=== PATIENT | male | born 1935 | race Caucasian/White ===

== ENCOUNTER 2016-05-11 13:09 | Inpatient (IN) | payer OTHER ==
[~2016-05-11] VITALS: Ht 162.6 cm; Wt 87.2 kg
[~2016-05-11 13:09] MED LIST: FLUT0.0529; ISOS60TA2 PO; LOSA1TAB38 PO; METO50TA17 PO; NITR0.4D6; OMEP40CA PO; SERT25TA PO; TAMS0.4C38 PO; THIA50TA3 PO; TIOTCAP INH; TRMCR130WC; WARF5TAB7 PO; [UNRECOGNIZED DRUG - CODE] PO
[2016-05-11] MEDS ORDERED: ASPI81TA28 PO (13:55)
[2016-05-11] MEDS ORDERED: FLOVENT PO (13:55)
[2016-05-11] MEDS ORDERED: PRVC40 PO (13:55)
[2016-05-11] MEDS ORDERED: ADVIN10050 PO (13:55)
[2016-05-11] MEDS ORDERED: DUTA0.5C PO (13:55)
[2016-05-11] MEDS ORDERED: APIX1TAB3 PO (13:55)
[2016-05-11] MEDS ORDERED: METO25TA56 PO (13:55)
[2016-05-11] MEDS ORDERED: AZITTAB PO (13:56)
[2016-05-11 14:05] LABS: BASO % 0.5 %; BASO ABS # 0.04 K/uL (0-0.2); COMPLETE YES; EOS % 2.8 %; IG% 0.2 %; LYMPH % 20.1 %; LYMPH ABS # 1.77 K/uL (1.2-3.4); MEAN CELL VOLUME 82.2 fL (80-100); MEAN CORPUSCULAR HEMOGLOBIN 26.2 pg (25-34); MEAN CORPUSCULAR HGB CONC 31.9 g/dl (32-36); NEUT % 63.4 %; PLATELET COUNT 224 K/uL (130-400); RED BLOOD COUNT 5.23 M/uL (4.7-6.1); WHITE BLOOD COUNT 8.79 K/uL (4.8-10.8)
--- NOTE | 2016-05-11 15:14 | DIAGNOSTIC IMAGING REPORT ---
CT OF THE HEAD WITHOUT CONTRAST CLINICAL HISTORY: Brief seizure-like activity. COMPARISON STUDY: Head CT April 19, 2015. CT DOSE: 687.98 mGy.cm TECHNIQUE: Helical axial images of the head were obtained without IV contrast. Automated exposure control was utilized for the study. FINDINGS: This study is mildly compromised by motion artifact. No acute intracranial hemorrhage, midline shift or mass effect is present. Ventricular system is stable. The basilar cisterns are patent. There are no extra-axial collections. Montero-white differentiation is maintained. There are no findings to suggest acute dural sinus thrombosis or acute territorial infarct. No calvarial fracture is present. The left mastoid air cells are clear. There is trace fluid within the right mastoid air cells. There is minimal mucosal thickening of the sinuses. IMPRESSION: No acute intracranial findings. Electronically signed by: Ced Kang M.D. 05/11/2016 3:12 PM Dictated Date/Time: 05/11/2016 3:10 PM
[2016-05-11 15:15] LABS: URINE APPEARANCE CLEAR (CLEAR); URINE COLOR DK YELLOW; URINE EPITHELIAL CELL AUTO 20-30 /lpf (0-5); URINE NITRITE POS (NEG); URINE SPECIFIC GRAVITY 1.024 (1.000-1.030); UROBILINOGEN NEG (NEG); ZZUR CULT IF INDIC CLEAN CATCH NO
[2016-05-11 15:16] LABS: MANUAL MICROSCOPIC REQUIRED? NO; REVIEW REQ? YES
--- NOTE | 2016-05-11 15:17 | DIAGNOSTIC IMAGING REPORT ---
CHEST 2 VIEWS ROUTINE HISTORY: cough COMPARISON: Chest 04/19/2015. FINDINGS: Left-sided dual-chamber pacemaker. The heart is stable in size. Volume loss within the right hemithorax persists. Patchy and linear densities within the right lower lung zone are not significantly changed. This favors postoperative change. There are stable blunting of the right lateral costophrenic sulcus. A 5 mm nodular density within the left lateral lower lobe on the frontal view is demonstrated to be a nipple shadow on the lateral view. The left lung is clear. No new focal lung consolidations. No evidence for pulmonary edema. IMPRESSION: No significant change compared to the prior study. No acute process. Stable presumed postoperative changes within the right hemithorax. Electronically signed by: James Marrufo M.D. 05/11/2016 3:16 PM Dictated Date/Time: 05/11/2016 3:13 PM
[2016-05-11 15:18] LABS: URINE BILIRUBIN NEG (NEG)
[2016-05-11] MEDS ORDERED: CEFTRIAXONE SOD INJ 1 GM ADDVIAL IV STA (15:24)
[2016-05-11] MEDS ORDERED: SODIUM CHLORIDE 0.9% 1000ML 1,000 ML IV STA (15:24)
[2016-05-11 15:36] LABS: URINE MUCUS PRESENT (NONE PRSENT)
--- NOTE | 2016-05-11 15:42 | EMERGENCY ROOM VISIT NOTE ---
History Report prepared by Arun: Kamala Ivy Under the Supervision of: Dr. Leeanna Bryan M.D. First contact with patient: 13:23 Chief Complaint: COUGH Stated Complaint: COUGHING Nursing Triage Summary: cough and dizziness and syncope started on . Evaluated by PCP on Thursday, placed on Zpack, no relief. History of Present Illness The patient is a 80 year old male who presents to the Emergency Room with complaints of a worsening cough for the past 3 days. He also notes dizziness, weakness, headache, and neck pain. Per , the patient has had 2 episodes of shaking with clenched fists while coughing that last for 1-2 minutes. The patient does not have any memory of these episodes. states that she was afraid to go to sleep and leave him unattended last night due to these episodes. She reports that he acted similarly in the past when he was in atrial fibrillation. The patient saw his PCP 2 days ago for his cough and was placed on a Z-pac. He has not had any relief of his symptoms. Source of History: patient, spouse/significant other Onset: 3 days ago Position: chest (respiratory) Quality: other (cough) Timing: worsening Modifying Factors (Relieving): other (none) Associated Symptoms: + headache, + neck pain, + weakness Review of Systems See HPI for pertinent positives & negatives. A total of 10 systems reviewed and were otherwise negative. Past Medical & Surgical Medical Problems: (1) Abnormal EKG (2) Atrial fibrillation (3) Hypertension (4) Pneumonia (5) Syncope (6) Upper respiratory infection Family History Non-pertinent due to advanced age. Social History Smoking Status: Never Smoker Marital Status: Housing Status: lives with significant other Occupation Status: retired Current/Historical Medications Scheduled Apixaban (Eliquis), 5 MG PO BID Azithromycin (Zithromax Z-Wander), 1 PKT PO UD Dutasteride (Avodart), 0.5 MG PO DAILY Fluticasone Prop/Salmeterol (Advair Diskus 100-50 Mcg/Dose), 1 PUFF PO DAILY Isosorbide Mononitrate (Imdur Ext Rel), 60 MG PO QAM Losartan Potassium (Cozaar), 100 MG PO BID Metoprolol Tartrate (Lopressor) (Lopressor), 25 MG PO BID Omeprazole (Prilosec), 40 MG PO DAILY Pravastatin Sod (Pravastatin Sodium), 80 MG PO QPM Sertraline (Zoloft), 25 MG PO QPM Tamsulosin Hcl (Flomax), 0.4 MG PO DAILY Thiamine Hcl (Vitamin B-1), 50 MG PO DAILY Tiotropium Moodus (Spiriva Handihaler), 1 CAP INH DAILY Triamcinolone Acet (Aristocort 0.1%), UD [Flovent], 2 PUFF PO BID Scheduled PRN Fluticasone Propionate (Nasal) (Flonase), 2 SPRAYS NA DAILY PRN for Nasal Congestion Nitroglycerin (Nitroglycerin), for Chest Pain Allergies Coded Allergies: Atorvastatin (Verified Adverse Reaction, Intermediate, N/V, 05/11/16) Benazepril (Verified Adverse Reaction, Intermediate, COUGH, 05/11/16) Physical Exam Vital Signs Date Time Temp Pulse Resp B/P Pulse Ox O2 Delivery O2 Flow Rate FiO2 05/11/16 17:26 64 20 135/68 97 05/11/16 17:00 68 20 128/68 96 Room Air 05/11/16 16:27 67 20 141/81 96 Room Air 05/11/16 15:23 64 20 113/69 96 Room Air 05/11/16 14:02 36.6 75 20 116/60 96 Room Air 05/11/16 13:57 75 05/11/16 13:54 64 20 109/62 67 95/59 79 116/60 05/11/16 13:20 36.6 80 20 119/77 96 Room Air Physical Exam CONSTITUTIONAL: No acute distress. HEENT: No icterus, moist mucous membranes NECK: No meningismus, trachea is midline. CARDIOVASCULAR: Regular rate, normal perfusion RESPIRATORY: Unlabored breathing. Coarse breath sounds bilaterally. GASTROINTESTINAL: Non-tender GENITOURINARY: No flank tenderness MUSCULOSKELETAL: Full range of motion, no pedal edema. NEUROLOGIC: No acute gross focal deficits. PSYCHIATRIC: Normal affect SKIN: Normal for ethnicity. Medical Decision & Procedures ER Provider Diagnostic Interpretation: Radiology results as stated below per my review and radiologist interpretation. CHEST 2 VIEWS ROUTINE HISTORY: cough COMPARISON: Chest 04/19/2015. FINDINGS: Left-sided dual-chamber pacemaker. The heart is stable in size. Volume loss within the right hemithorax persists. Patchy and linear densities within the right lower lung zone are not significantly changed. This favors postoperative change. There are stable blunting of the right lateral costophrenic sulcus. A 5 mm nodular density within the left lateral lower lobe on the frontal view is demonstrated to be a nipple shadow on the lateral view. The left lung is clear. No new focal lung consolidations. No evidence for pulmonary edema. IMPRESSION: No significant change compared to the prior study. No acute process. Stable presumed postoperative changes within the right hemithorax. Electronically signed by: James Marrufo M.D. 05/11/2016 3:16 PM Dictated Date/Time: 05/11/2016 3:[address] OF THE HEAD WITHOUT CONTRAST CLINICAL HISTORY: Brief seizure-like activity. COMPARISON STUDY: Head CT April 19, 2015. CT DOSE: 687.98 mGy.cm TECHNIQUE: Helical axial images of the head were obtained without IV contrast. Automated exposure control was utilized for the study. FINDINGS: This study is mildly compromised by motion artifact. No acute intracranial hemorrhage, midline shift or mass effect is present. Ventricular system is stable. The basilar cisterns are patent. There are no extra-axial collections. Montero-white differentiation is maintained. There are no findings to suggest acute dural sinus thrombosis or acute territorial infarct. No calvarial fracture is present. The left mastoid air cells are clear. There is trace fluid within the right mastoid air cells. There is minimal mucosal thickening of the sinuses. IMPRESSION: No acute intracranial findings. Electronically signed by: Ced Kang M.D. 05/11/2016 3:12 PM Dictated Date/Time: 05/11/2016 3:10 PM Laboratory Results 05/11/16 13:40 Red Blood Count 5.23, Mean Corpuscular Volume 82.2, Mean Corpuscular Hemoglobin 26.2, Mean Corpuscular Hemoglobin Concent 31.9, Mean Platelet Volume 10.0, Neutrophils (%) (Auto) 63.4, Lymphocytes (%) (Auto) 20.1, Monocytes (%) (Auto) 13.0, Eosinophils (%) (Auto) 2.8, Basophils (%) (Auto) 0.5, Neutrophils # (Auto ) 5.57, Lymphocytes # (Auto) 1.77, Monocytes # (Auto) 1.14, Eosinophils # (Auto ) 0.25, Basophils # (Auto) 0.04 05/11/16 16:15 Test 05/11/16 13:40 05/11/16 13:49 05/11/16 14:00 05/11/16 14:55 White Blood Count 8.79 K/uL (4.8-10.8) Red Blood Count 5.23 M/uL (4.7-6.1) Hemoglobin 13.7 g/dL (14.0-18.0) Hematocrit 43.0 % (42-52) Mean Corpuscular Volume 82.2 fL (80-100) Mean Corpuscular Hemoglobin 26.2 pg (25-34) Mean Corpuscular Hemoglobin Concent 31.9 g/dl (32-36) Platelet Count 224 K/uL (130-400) Mean Platelet Volume 10.0 fL (7.4-10.4) Neutrophils (%) (Auto) 63.4 % Lymphocytes (%) (Auto) 20.1 % Monocytes (%) (Auto) 13.0 % Eosinophils (%) (Auto) 2.8 % Basophils (%) (Auto) 0.5 % Neutrophils # (Auto) 5.57 K/uL (1.4-6.5) Lymphocytes # (Auto) 1.77 K/uL (1.2-3.4) Monocytes # (Auto) 1.14 K/uL (0.11-0.59) Eosinophils # (Auto) 0.25 K/uL (0-0.5) Basophils # (Auto) 0.04 K/uL (0-0.2) RDW Standard Deviation 41.7 fL (36.4-46.3) RDW Coefficient of Variation 13.9 % (11.5-14.5) Immature Granulocyte % (Auto) 0.2 % Immature Granulocyte # (Auto) 0.02 K/uL (0.00-0.02) Magnesium Level 2.4 mg/dl (1.8-2.4) Total Creatine Kinase 77 U/L (39-308) Creatine Kinase MB 1.1 ng/ml (0.5-3.6) Creatine Kinase MB Ratio 1.4 (0-3.0) Troponin I < 0.015 ng/ml (0-0.045) Bedside Lactic Acid Venous 1.51 mmol/L (0.90-1.70) Influenza Type A Antigen Neg for Influ A (NEG) Influenza Type B Antigen Neg for Influ B (NEG) Urine Color DK YELLOW Urine Appearance CLEAR (CLEAR) Urine pH 5.0 (4.5-7.5) Urine Specific [place] 1.024 (1.000-1.030) Urine Protein NEG (NEG) Urine Glucose (UA) NEG (NEG) Urine Ketones TRACE (NEG) Urine Occult Blood NEG (NEG) Urine Nitrite POS (NEG) Urine Bilirubin NEG (NEG) Urine Urobilinogen NEG (NEG) Urine Leukocyte Esterase TRACE (NEG) Urine WBC (Auto) 1-5 /hpf (0-5) Urine RBC (Auto) 0-4 /hpf (0-4) Urine Hyaline Casts (Auto) >30 /lpf (0-5) Urine Epithelial Cells (Auto) 20-30 /lpf (0-5) Urine Bacteria (Auto) NEG (NEG) Urine Pathogenic Casts /lpf (0) Urine Mucus PRESENT (NONE PRSENT) Test 05/11/16 16:15 Anion Gap 10.0 mmol/L (3-11) Est Creatinine Clear Calc Drug Dose 32.8 ml/min Estimated GFR () 40.3 Estimated GFR (Non- 34.8 BUN/Creatinine Ratio 17.1 (10-20) Calcium Level 8.3 mg/dl (8.5-10.1) Total Bilirubin 0.6 mg/dl (0.2-1) Aspartate Amino Transf (AST/SGOT) 16 U/L (15-37) Alanine Aminotransferase (ALT/SGPT) 12 U/L (12-78) Alkaline Phosphatase 61 U/L (45-117) Total Protein 6.0 gm/dl (6.4-8.2) Albumin 3.1 gm/dl (3.4-5.0) Globulin 2.9 gm/dl (2.5-4.0) Albumin/Globulin Ratio 1.1 (0.9-2) Labs reviewed by ED physician. Medications Administered Medications (Trade) Dose Ordered Sig/Ryanne Route Start Time Stop Time Status Last Admin Dose Admin Sodium Chloride (Nss 1000ml) 1,000 ml @ 0 mls/hr Q0M STAT IV 05/11/16 15:24 05/11/16 15:25 DC 05/11/16 15:24 0 MLS/HR Ceftriaxone Sodium (Rocephin Inj) 1 gm NOW STAT IV 05/11/16 15:24 05/11/16 15:25 DC 05/11/16 16:29 1 GM ED Course 1324: Past medical records reviewed. The patient was evaluated in room C12B. A complete history and physical examination was performed. 1524: Rocephin 1 gm IV, NSS 1000 ml wide open IV 1532: I reassessed the patient at this time. He is feeling better and resting comfortably. I discussed the results and treatment plan with the patient. I answered all pertaining questions that he had. He expressed understanding and verbalized agreement. 1543: I spoke with Dr. Gomez. We discussed the patients results and treatment plan. The patient will be evaluated by the [facility] for further management. Medical Decision Differential diagnoses includes viral syndrome, pneumonia, seizure, electrolyte abnormality. 80-year-old brought to the emergency room by his for evaluation of cough with 2 episodes of seizure-like activity and loss of consciousness earlier today. He is presently alert oriented cooperative without complaints. states he had a coughing fit followed by perhaps 30 seconds to a minute of generalized shaking activity with no recollection of this activity. He he rapidly returned to normal mentation, however. Review of systems notable for mild diffuse headache without focal neurologic complaints. No prior history of seizure disorder. Preliminary UA notable for nitrites and patient mildly hypotensive: IVFs and Rocephin IV ordered and hospitalization arranged. Consults Time Called: 153 Consulting Physician: Dr. Gomez Returned Call: [phone] Gomez. We discussed the patients results and treatment plan. The patient will be evaluated by the [facility] for further management. Impression Primary Impression: UTI (urinary tract infection) Additional Impressions: Altered mental status, Seizure-like activity Scribe Attestation The scribe's documentation has been prepared under my direction and personally reviewed by me in its entirety. I confirm that the note above accurately reflects all work, treatment, procedures, and medical decision making performed by me. Departure Information Dispostion Being Evaluated By Hospitalist Demetrio Braxton M.D. (PCP) Patient Instructions A Signature Page, My [facility]
[2016-05-11 16:16] LABS: CKMB/CK RATIO 1.4 (0-3.0)
[2016-05-11] MEDS ORDERED: NSS + 20MEQ KCL 1000ML 1,000 ML IV SCH (16:29)
[2016-05-11] MEDS ORDERED: ZOLPIDEM TARTRATE 5 MG TAB PO PRN (16:30)
[2016-05-11] MEDS ORDERED: FLUTICASONE PROPIONATE NA SPR 16 GM BTL PRN (16:30)
[2016-05-11] MEDS ORDERED: ACETAMINOPHEN 325 MG TAB PO PRN (16:30)
[2016-05-11] MEDS ORDERED: NITROGLYCERIN 0.4 MG SL PER TAB CHARGE SL PRN (16:30)
[2016-05-11 16:44] LABS: BUN/CREATININE RATIO 17.1 (10-20); CALCIUM 8.3 mg/dl (8.5-10.1); CREATININE 1.8 mg/dl (0.60-1.40); POTASSIUM 4.3 mmol/L (3.5-5.1)
[2016-05-11 16:49] LABS: ALB/GLOB RATIO 1.1 (0.9-2)
[2016-05-11 17:52] VITALS: BP 169/93; PULSE 74; TEMP 36.5; O2SAT 98; Ht 162.6 cm; Wt 87.2 kg
[2016-05-11] MEDS: SODIUM CHLORIDE 0.9% 1000ML 1,000 ML IV SCH (19:41)
--- NOTE | 2016-05-11 19:57 | History and Physical ---
History & Physical Date & Time of Service: May 11, 2016 at 19:44 Chief Complaint: Abnormal Ekg, Upper Respiratory Infection Primary Care Physician: Demetrio Strickland M.D. History of Present Illness Source: patient The patient is [id number] male presents emergency department with worsening cough with past 3 days his reports that when he coughs he tenses himself upper extremities so severely that he almost passes out over the interval 1-2 minutes. He's also had dizziness, weakness, headache and neck pain. He has had similar symptoms in the past when he was diagnosed with atrial fibrillation. 2 days ago he saw his PCP, who put him on a Z-Wander, without any relief of symptoms at this time. Past Medical/Surgical History Medical Problems: (1) Atrial fibrillation Status: Chronic (2) Hypertension Status: Chronic (3) Pneumonia Status: Resolved (4) Syncope Status: Resolved Social History Smoking Status: Former Smoker Smokeless Tobacco Use: No Alcohol Use: none Drug Use: none Marital Status: Housing status: lives with family Occupational Status: retired Multi-Drug Resistant Organisms History of MDRO: No Allergies Coded Allergies: Atorvastatin (Verified Adverse Reaction, Intermediate, N/V, 05/11/16) Benazepril (Verified Adverse Reaction, Intermediate, COUGH, 05/11/16) Home Medications Scheduled Apixaban (Eliquis), 5 MG PO BID Azithromycin (Zithromax Z-Wander), 1 PKT PO UD Dutasteride (Avodart), 0.5 MG PO DAILY Fluticasone Prop/Salmeterol (Advair Diskus 100-50 Mcg/Dose), 1 PUFF PO DAILY Isosorbide Mononitrate (Imdur Ext Rel), 60 MG PO QAM Losartan Potassium (Cozaar), 100 MG PO BID Metoprolol Tartrate (Lopressor) (Lopressor), 25 MG PO BID Omeprazole (Prilosec), 40 MG PO DAILY Pravastatin Sod (Pravastatin Sodium), 80 MG PO QPM Sertraline (Zoloft), 25 MG PO QPM Tamsulosin Hcl (Flomax), 0.4 MG PO DAILY Thiamine Hcl (Vitamin B-1), 50 MG PO DAILY Tiotropium [place] (Spiriva Handihaler), 1 CAP INH DAILY Triamcinolone Acet (Aristocort 0.1%), UD [Flovent], 2 PUFF PO BID Scheduled PRN Fluticasone Propionate (Nasal) (Flonase), 2 SPRAYS NA DAILY PRN for Nasal Congestion Nitroglycerin (Nitroglycerin), for Chest Pain Review of Systems The patient denies chest pain, palpitations, lower extremity swelling, vision change, hearing change, sore throat, fevers, chills, sweats, weight change, nausea, vomiting, abdominal pain, pelvic pain, blood in urine or stool, dysuria , urinary frequency or urgency, headache, memory loss, rash, abnormal bruising or bleeding, imbalance, focal weakness, numbness or tingling in arms or legs, arthralgias or myalgias, back or neck pain, night sweats, or allergy symptoms. The review of systems is otherwise negative other than for that already noted above, and at least 10 systems have been reviewed. Physical Exam Vital Signs Date Time Temp Pulse Resp B/P Pulse Ox O2 Delivery O2 Flow Rate FiO2 05/11/16 17:52 36.5 74 20 169/93 98 Room Air 05/11/16 17:26 64 20 135/68 97 05/11/16 17:00 68 20 128/68 96 Room Air 05/11/16 16:27 67 20 141/81 96 Room Air 05/11/16 15:23 64 20 113/69 96 Room Air 05/11/16 14:02 36.6 75 20 116/60 96 Room Air 05/11/16 13:57 75 05/11/16 13:54 64 20 109/62 67 95/59 79 116/60 05/11/16 13:20 36.6 80 20 119/77 96 Room Air The patient is awake, well-developed and adequately nourished, alert and oriented 3, normocephalic and atraumatic, lying in bed and in no acute distress. HEENT--PERRL, EOMI, mucous membranes moist, and oropharynx normal. Neck--supple, no JVD or bruits, thyroid normal, trachea midline, no adenopathy. Heart--normal S1 and S2, no extra beats, no murmurs, rubs or gallops. Lungs--clear bilaterally with good air movement, no respiratory distress, no accessory muscle use. Abdomen--normal bowel sounds and soft, nontender and nondistended, no hernias or masses, no organomegaly. Extremities--no cyanosis, clubbing or edema. There are good distal pulses b/l. Dermatologic--normal skin turgor, normal color, warm and dry, no abnormal lymph nodes, no rash. Neurologic--cranial nerves II through XII grossly intact. Psychiatric--normal affect. Diagnostics Laboratory Results Results Past 24 Hours Test 05/11/16 13:40 05/11/16 13:49 05/11/16 14:00 05/11/16 14:55 Range/Units White Blood Count 8.79 4.8-10.8 K/uL Red Blood Count 5.23 4.7-6.1 M/uL Hemoglobin 13.7 14.0-18.0 g/dL Hematocrit 43.0 42-52 % Mean Corpuscular Volume 82.2 80-100 fL Mean Corpuscular Hemoglobin 26.2 25-34 pg Mean Corpuscular Hemoglobin Concent 31.9 32-36 g/dl Platelet Count 224 130-400 K/uL Mean Platelet Volume 10.0 7.4-10.4 fL Neutrophils (%) (Auto) 63.4 % Lymphocytes (%) (Auto) 20.1 % Monocytes (%) (Auto) 13.0 % Eosinophils (%) (Auto) 2.8 % Basophils (%) (Auto) 0.5 % Neutrophils # (Auto) 5.57 1.4-6.5 K/uL Lymphocytes # (Auto) 1.77 1.2-3.4 K/uL Monocytes # (Auto) 1.14 0.11-0.59 K/uL Eosinophils # (Auto) 0.25 0-0.5 K/uL Basophils # (Auto) 0.04 0-0.2 K/uL RDW Standard Deviation 41.7 36.4-46.3 fL RDW Coefficient of Variation 13.9 11.5-14.5 % Immature Granulocyte % (Auto) 0.2 % Immature Granulocyte # (Auto) 0.02 0.00-0.02 K/uL Magnesium Level 2.4 1.8-2.4 mg/dl Total Creatine Kinase 77 39-308 U/L Creatine Kinase MB 1.1 0.5-3.6 ng/ml Creatine Kinase MB Ratio 1.4 0-3.0 Troponin I < 0.015 0-0.045 ng/ml Bedside Lactic Acid Venous 1.51 0.90-1.70 mmol/L Influenza Type A Antigen Neg for Influ A NEG Influenza Type B Antigen Neg for Influ B NEG Urine Color DK YELLOW Urine Appearance CLEAR CLEAR Urine pH 5.0 4.5-7.5 Urine Specific [place] 1.024 1.000-1.030 Urine Protein NEG NEG Urine Glucose (UA) NEG NEG Urine Ketones TRACE NEG Urine Occult Blood NEG NEG Urine Nitrite POS NEG Urine Bilirubin NEG NEG Urine Urobilinogen NEG NEG Urine Leukocyte Esterase TRACE NEG Urine WBC (Auto) 1-5 0-5 /hpf Urine RBC (Auto) 0-4 0-4 /hpf Urine Hyaline Casts (Auto) >30 0-5 /lpf Urine Epithelial Cells (Auto) 20-30 0-5 /lpf Urine Bacteria (Auto) NEG NEG Urine Pathogenic Casts 0 /lpf Urine Mucus PRESENT NONE PRSENT Test 05/11/16 16:15 Range/Units Sodium Level 141 136-145 mmol/L Potassium Level 4.3 3.5-5.1 mmol/L Chloride Level 105 98-107 mmol/L Carbon Dioxide Level 26 21-32 mmol/L Anion Gap 10.0 3-11 mmol/L Blood Urea Nitrogen 31 7-18 mg/dl Creatinine 1.80 0.60-1.40 mg/dl Est Creatinine Clear Calc Drug Dose 32.8 ml/min Estimated GFR () 40.3 Estimated GFR (Non- 34.8 BUN/Creatinine Ratio 17.1 10-20 Random Glucose 103 70-99 mg/dl Calcium Level 8.3 8.5-10.1 mg/dl Total Bilirubin 0.6 0.2-1 mg/dl Aspartate Amino Transf (AST/SGOT) 16 15-37 U/L Alanine Aminotransferase (ALT/SGPT) 12 12-78 U/L Alkaline Phosphatase 61 45-117 U/L Total Protein 6.0 6.4-8.2 gm/dl Albumin 3.1 3.4-5.0 gm/dl Globulin 2.9 2.5-4.0 gm/dl Albumin/Globulin Ratio 1.1 0.9-2 Microbiology Results 05/11/16 Blood Culture, Received Pending 05/11/16 Blood Culture, Received Pending Diagnostic Radiology Patient Name: BRANDON KUMARI Unit Number: [id number] Dictated: 05/11/161512 Transcribed: 05/11/161512 PA Printed Date/Time: [~ rep prt dt]/[~ rep prt tm] [~ rep ct labl] - [~ rep ct ivnm] [facility] [place] [place] [address] Dictated: 05/11/161512 Transcribed: 05/11/161512 PA Printed Date/Time: [~ rep prt dt]/[~ rep prt tm] [~ rep ct labl] - [~ rep ct ivnm] CHEST 2 VIEWS ROUTINE HISTORY: cough COMPARISON: Chest 04/19/2015. FINDINGS: Left-sided dual-chamber pacemaker. The heart is stable in size. Volume loss within the right hemithorax persists. Patchy and linear densities within the right lower lung zone are not significantly changed. This favors postoperative change. There are stable blunting of the right lateral costophrenic sulcus. A 5 mm nodular density within the left lateral lower lobe on the frontal view is demonstrated to be a nipple shadow on the lateral view. The left lung is clear. No new focal lung consolidations. No evidence for pulmonary edema. IMPRESSION: No significant change compared to the prior study. No acute process. Stable presumed postoperative changes within the right hemithorax. Electronically signed by: James Marrufo M.D. 05/11/2016 3:16 PM Dictated Date/Time: 05/11/2016 3:13 PM The status of this report is Signed. Draft = Not yet reviewed or approved by Radiologist. Signed = Reviewed and approved by Radiologist. <AttendingPhy></AttendingPhy> <FamilyPhy>Jorge Luis Clement MD</FamilyPhy > <PrimaryPhy>Demetrio Strickland M.D.</PrimaryPhy> <UnitNumber>[id number]</UnitNumber > <VisitNumber>[id number]</VisitNumber> <PatientName>BRANDON KUMARI</ PatientName> <DateOfBirth>1935</DateOfBirth> <Location>[facility]C</Location> < ServiceDate>05/11/16</ServiceDate> <MNE>ESINDI</MNE> <OrderingPhy>Fanny Bryan MD</OrderingPhy> <OrderingPhyMNE>f rep ord dr hernandez</OrderingPhyMNE> < DictatingPhyMNE>f rep dict dr hernandez</DictatingPhyMNE> <CCListMNE>f rep ct mne</ CCListMNE> <AdmittingPhyMNE>f pt admit dr hernandez</AdmittingPhyMNE> <AttendingPhyMNE >f pt attend dr hernandez</AttendingPhyMNE> <ConsultingPhyMNE>f pt consult dr hernandez</ConsultingPhyMNE> <FamilyPhyMNE>f pt fam dr hernandez</FamilyPhyMNE> <OtherPhyMNE>f pt other dr hernandez</OtherPhyMNE> < PrimaryPhyMNE>f pt prim care dr hernandez</PrimaryPhyMNE> <ReferringPhyMNE>f pt referring dr hernandez</ReferringPhyMNE> Patient Name: BRANDON KUMARI Unit Number: [id number] Dictated: 05/11/161509 Transcribed: 05/11/161509 Printed Date/Time: [~ rep prt dt]/[~ rep prt tm] [~ rep ct labl] - [~ rep ct ivnm] [facility] [place] [place] [address] Dictated: 05/11/161509 Transcribed: 05/11/161509 Printed Date/Time: [~ rep prt dt]/[~ rep prt tm] [~ rep ct labl] - [~ rep ct ivnm] CT OF THE HEAD WITHOUT CONTRAST CLINICAL HISTORY: Brief seizure-like activity. COMPARISON STUDY: Head CT April 19, 2015. CT DOSE: 687.98 mGy.cm TECHNIQUE: Helical axial images of the head were obtained without IV contrast. Automated exposure control was utilized for the study. FINDINGS: This study is mildly compromised by motion artifact. No acute intracranial hemorrhage, midline shift or mass effect is present. Ventricular system is stable. The basilar cisterns are patent. There are no extra-axial collections. Montero-white differentiation is maintained. There are no findings to suggest acute dural sinus thrombosis or acute territorial infarct. No calvarial fracture is present. The left mastoid air cells are clear. There is trace fluid within the right mastoid air cells. There is minimal mucosal thickening of the sinuses. IMPRESSION: No acute intracranial findings. Electronically signed by: Ced Kang M.D. 05/11/2016 3:12 PM Dictated Date/Time: 05/11/2016 3:10 PM The status of this report is Signed. Draft = Not yet reviewed or approved by Radiologist. Signed = Reviewed and approved by Radiologist. <AttendingPhy></AttendingPhy> <FamilyPhy>Jorge Luis Clement MD</FamilyPhy > <PrimaryPhy>Demetrio Strickland M.D.</PrimaryPhy> <UnitNumber>[id number]</UnitNumber > <VisitNumber>[id number]</VisitNumber> <PatientName>QUOCBRANDON</ PatientName> <DateOfBirth>1935</DateOfBirth> <Location>C[facility]</Location> < ServiceDate>05/11/16</ServiceDate> <MNE>ESINDI</MNE> <OrderingPhy>Fanny Bryan MD</OrderingPhy> <OrderingPhyMNE>f rep ord dr hernandez</OrderingPhyMNE> < DictatingPhyMNE>f rep dict dr hernandez</DictatingPhyMNE> <CCListMNE>f rep ct david</ CCListMNE> <AdmittingPhyMNE>f pt admit dr hernandez</AdmittingPhyMNE> <AttendingPhyMNE >f pt attend dr hernandez</AttendingPhyMNE> <ConsultingPhyMNE>f pt consult dr hernandez</ConsultingPhyMNE> <FamilyPhyMNE>f pt fam dr hernandez</FamilyPhyMNE> <OtherPhyMNE>f pt other dr hernandez</OtherPhyMNE> < PrimaryPhyMNE>f pt prim care dr hernandez</PrimaryPhyMNE> <ReferringPhyMNE>f pt referring dr hernandez</ReferringPhyMNE> EKG EKG shows normal sinus rhythm at 66, with nonspecific ST-T changes inferiorly and laterally in limb and chest leads. Impression Assessment and Plan Abnormal EKG with ST-T changes in lateral and inferior leads with normal cardiac enzymes upon admission/atrial fibrillation/CAD--the patient will be admitted to the telemetry unit, for serial cardiac enzymes, cardiac rhythm monitoring, and a 2-D echocardiogram with Dopplers. These changes are likely secondary to the stress of his associated infection. Continue Eliquis 5 mg by mouth twice a day, Imdur extended release 60 mg by mouth every morning, change Cozaar from 100 mg by mouth twice a day to every morning, continue metoprolol tartrate 25 mg by mouth twice a day. Upper respiratory infection with sinusitis--start ceftriaxone 1 g IV daily and guaifenesin extended release 600 mg by mouth twice a day. Continue Advair Diskus 100/50 one inhalation daily and Spiriva one inhalation every morning. BPH--continue Avodart 0.5 mg by mouth every morning and tamsulosin 0.4 mg by mouth at bedtime. Hypercholesterolemia-- continue pravastatin 80 mg by mouth every afternoon. GERD--change omeprazole 20 mg by mouth daily to pantoprazole 40 mg by mouth daily. Depression-- continue sertraline 25 mg by mouth every afternoon. Level of Care Telemetry Advanced Directives Existing Advance Directive: Yes Existing Living Will: Yes Existing Power of Poultry And Fish Butcher: No VTE Prophylaxis VTE Risk Assessment Done? Y/N: Yes Risk Level: Moderate Given or contraindicated: SCD's
[2016-05-11] MEDS ORDERED: SERTRALINE HCL 50 MG TAB PO SCH (21:00)
[2016-05-11] MEDS ORDERED: TAMSULOSIN HCL 0.4 MG CAP PO SCH (21:00)
[2016-05-11] MEDS ORDERED: PRAVASTATIN SOD 40 MG TAB PO SCH (21:00)
[2016-05-11] MEDS: GUAIFENESIN 600 MG TABCR PO SCH (21:03)
[2016-05-11] MEDS: METOPROLOL TARTRATE 25 MG TAB PO SCH (21:03)
[2016-05-11] MEDS: APIXABAN 2.5 MG TAB PO SCH (21:07)
[2016-05-11 23:33] VITALS: BP 162/82; PULSE 62; TEMP 36.4; O2SAT 96
[2016-05-12] MEDS ORDERED: AVODART-ORDER AWAITING ACTION SCH
[2016-05-12 04:00] VITALS: BP 166/82; PULSE 58; TEMP 37; O2SAT 94
[2016-05-12] MEDS: SODIUM CHLORIDE 0.9% 1000ML 1,000 ML IV SCH (06:35)
[2016-05-12 08:00] VITALS: O2SAT 96
[2016-05-12 08:11] VITALS: BP 193/99; PULSE 63; TEMP 36.6; O2SAT 96
[2016-05-12 08:13] LABS: BASO % 0.6 %; BASO ABS # 0.04 K/uL (0-0.2); COMPLETE YES; EOS % 6.1 %; HEMATOCRIT 41.4 % (42-52); IG% 0.2 %; LYMPH ABS # 1.47 K/uL (1.2-3.4); MEAN CORPUSCULAR HEMOGLOBIN 26.7 pg (25-34); MEAN CORPUSCULAR HGB CONC 32.1 g/dl (32-36); MEAN PLATELET VOLUME 9.7 fL (7.4-10.4); MONO % 9.1 %; PLATELET COUNT 163 K/uL (130-400); RED BLOOD COUNT 4.99 M/uL (4.7-6.1)
[2016-05-12] MEDS: METOPROLOL TARTRATE 25 MG TAB PO SCH (08:17)
[2016-05-12] MEDS: GUAIFENESIN 600 MG TABCR PO SCH (08:17)
[2016-05-12] MEDS: APIXABAN 2.5 MG TAB PO SCH (08:18)
[2016-05-12 08:53] LABS: BUN/CREATININE RATIO 22.4 (10-20); CALCIUM 8.3 mg/dl (8.5-10.1); CKMB/CK RATIO 1.3 (0-3.0); CREATININE 0.98 mg/dl (0.60-1.40); POTASSIUM 3.9 mmol/L (3.5-5.1)
[2016-05-12] MEDS ORDERED: TIOTROPIUM BROMIDE 5 PUFF/90 MCG INH INH SCH (09:00)
[2016-05-12] MEDS ORDERED: LOSARTAN POTASSIUM 50 MG TAB PO SCH (09:00)
[2016-05-12] MEDS ORDERED: ISOSORBIDE MONONITRATE 60 MG TABCR PO SCH (09:00)
[2016-05-12] MEDS ORDERED: PANTOprazole SOD 40 MG TAB PO SCH (09:00)
[2016-05-12] MEDS ORDERED: FLUTICASONE/SALMETEROL 100/50 (ADVAIR) 14 PUFF/1 INHALER INH SCH (09:00)
[2016-05-12] MEDS ORDERED: THIAMINE HCL 50 MG TAB PO SCH (09:00)
[2016-05-12] MEDS ORDERED: LORATADINE 10 MG TAB PO ONE (09:45)
--- NOTE | 2016-05-12 11:01 | Clinical Documentation Query ---
CARL Harrington : CLINICAL DOCUMENTATION QUERY Patient is an 80 year old male admitted with upper respiratory infection with sinusitis and abnormal EKG. Admission BUN and creatinine noted at 31 mg/dl and 1.80 mg/dl. No documented history of CKD. Follow up labs this a.m. (05/12) demonstrate values of 22 mg/dl and 0.98 mg/dl. Patient has been treated with IVF and monitored with serial chemistries. In your clinical opinion is this patient being managed for: (xx ) Acute kidney failure, POA, resolved ( ) Other explanation of clinical findings (Please Explain) ( ) Unable to determine (Please Define) ( ) Need to Discuss ( ) Not Agree The medical record reflects the following clinical findings, treatment, and risk factors. Clinical Indicators: As above Treatment:Patient has been treated with IVF and monitored with serial chemistries. Risk Factors: Recent illness, poor oral intake. Please clarify and document your clinical opinion in the progress notes and discharge summary. Terms such as "probable", "suspected", "likely", "questionable", "possible", or "still to be ruled out" are acceptable. IF IN AGREEMENT, YOU MUST DOCUMENT ABOVE DIAGNOSTIC STATEMENT IN DAILY PROGRESS NOTES AND DISCHARGE SUMMARY. This document is not part of the patient's record. Thank You, Ata Hoyt, DANIELLE [phone]
[2016-05-12 12:00] VITALS: BP 159/79; PULSE 52; TEMP 36.7; O2SAT 95
--- NOTE | 2016-05-12 12:17 | Progress Note ---
Subjective Date of Service: May 12, 2016. Subjective Pt evaluation today including: conversation w/ patient, physical exam, chart review, lab review, review of studies, review of inpatient medication list Patient seen and evaluated. No acute events overnight. Patient reports no further syncopal episodes since admission. States these episodes only occur in setting of severe cough and intermittently with rapid changes in position. Patient was seen in 2014 with similar complaints. He denies CP, SOB, or dizziness at this time. Patient ambulated the hallway without desats or complaints. Problem List Medical Problems: (1) Altered mental status Status: Acute (2) Seizure-like activity Status: Acute (3) UTI (urinary tract infection) Status: Acute Review of Systems Constitutional: No chills, No fever ENT: + nasal symptoms, No sore throat Respiratory: + cough, + sputum (intermittent), No dyspnea at rest, No dyspnea on exertion, No shortness of breath Cardiac: No chest pain, No orthopnea Abdomen: No constipation, No diarrhea, No nausea, No pain, No vomiting Musculoskeletal: No calf pain, No swelling Neurologic: No vertigo, No weakness Endo: No fatigue Skin: No rash Medications Current Inpatient Medications Medications (Trade) Dose Ordered Sig/Ryanne Route Start Time Stop Time Status Last Admin Dose Admin Acetaminophen (Tylenol Tab) 650 mg Q4H PRN PO 05/11/16 16:30 06/10/16 16:29 Zolpidem Tartrate (Ambien Tab) 5 mg HSZ PRN PO 05/11/16 16:30 06/10/16 16:29 Nitroglycerin (Nitrostat Tab) 0.4 mg UD PRN SL 05/11/16 16:30 06/10/16 16:29 Fluticasone Propionate (Flonase Nasal [place]) 2 sprays DAILY PRN NA 05/11/16 16:30 06/10/16 16:29 Isosorbide Mononitrate (Imdur Ext Rel Tab) 60 mg QAM PO 05/12/16 09:00 06/11/16 08:59 05/12/16 08:18 60 MG Losartan Potassium (coZAAR TAB) 100 mg DAILY PO 05/12/16 09:00 06/11/16 08:59 05/12/16 08:19 100 MG Metoprolol Tartrate (Lopressor Tab) 25 mg BID PO 05/11/16 21:00 06/10/16 20:59 05/12/16 08:17 25 MG Pravastatin Sodium (Pravachol Tab) 80 mg QPM PO 05/11/16 21:00 06/10/16 20:59 05/11/16 21:04 80 MG Sertraline HCl (Zoloft Tab) 25 mg QPM PO 05/11/16 21:00 06/10/16 20:59 05/11/16 21:05 25 MG Tamsulosin HCl (Flomax Cap) 0.4 mg HS PO 05/11/16 21:00 06/10/16 20:59 05/11/16 21:04 0.4 MG Thiamine HCl (Vitamin B-1 Tab) 50 mg DAILY PO 05/12/16 09:00 06/11/16 08:59 05/12/16 08:17 50 MG Miscellaneous Information (Order Awaiting Action) 1 ea QS N/A 05/12/16 00:00 06/11/16 00:00 Apixaban (Eliquis Tab) 5 mg BID PO 05/11/16 21:00 06/10/16 20:59 05/12/16 08:18 5 MG Miscellaneous Information (Order Awaiting Action) 1 ea QS N/A 05/12/16 00:00 06/11/16 00:00 Pantoprazole Sodium 40 mg 40 mg QAM PO 05/12/16 09:00 06/11/16 08:59 05/12/16 08:18 40 MG Ceftriaxone Sodium 1 gm/ Dextrose 50 ml @ 100 mls/hr Q24H IV 05/12/16 17:00 05/18/16 23:59 Sodium Chloride (Nss 1000ml) 1,000 ml @ 75 mls/hr [id number] IV 05/11/16 17:15 06/10/16 17:14 05/12/16 06:35 75 MLS/HR Salmeterol Xinafoate/ Fluticasone (Advair Diskus 100/50 Inh) 1 puff DAILY INH 05/12/16 09:00 06/11/16 08:59 05/12/16 08:19 1 PUFF Tiotropium [place] (Spiriva Handihaler Inhaler) 1 puff DAILY INH 05/12/16 09:00 2/8/17 08:59 05/12/16 08:20 1 PUFF Guaifenesin (Mucinex Contr Rel Tab) 600 mg Q12 PO 05/11/16 21:00 06/10/16 20:59 05/12/16 08:17 600 MG Loratadine (Claritin Tab) 10 mg QAM PO 05/13/16 09:00 06/12/16 08:59 Objective Vital Signs Date Time Temp Pulse Resp B/P Pulse Ox O2 Delivery O2 Flow Rate FiO2 05/12/16 12:00 36.7 52 18 159/79 95 Room Air 05/12/16 08:11 36.6 63 20 193/99 96 Room Air 05/12/16 08:00 96 Room Air 05/12/16 04:00 94 Room Air 05/12/16 04:00 37.0 58 20 166/82 94 Room Air 05/11/16 23:59 Room Air 05/11/16 23:33 36.4 62 20 162/82 96 Room Air 05/11/16 17:52 36.5 74 20 169/93 98 Room Air 05/11/16 17:26 64 20 135/68 97 05/11/16 17:00 68 20 128/68 96 Room Air 05/11/16 16:27 67 20 141/81 96 Room Air 05/11/16 15:23 64 20 113/69 96 Room Air 05/11/16 14:02 36.6 75 20 116/60 96 Room Air 05/11/16 13:57 75 05/11/16 13:54 64 20 109/62 67 95/59 79 116/60 05/11/16 13:20 36.6 80 20 119/77 96 Room Air Physical Exam General Appearance: WD/WN, no apparent distress Eyes: sclerae normal ENT: hearing grossly normal, pharynx normal Neck: supple, no adenopathy, no JVD, trachea midline Respiratory/Chest: no respiratory distress, no accessory muscle use, + pertinent finding (course breath sounds noted at bases bilat without wheezing; mild improvement after deep breathing and coughing) Cardiovascular: regular rate, rhythm, no gallop, no murmur Abdomen: normal bowel sounds, non tender, soft Extremities: no pedal edema, no calf tenderness Neurologic/Psychiatric: alert, oriented x 3 Skin: normal color Laboratory Results Last 24 Hours Test 05/11/16 13:40 05/11/16 13:49 05/11/16 14:00 05/11/16 14:55 White Blood Count 8.79 K/uL Red Blood Count 5.23 M/uL Hemoglobin 13.7 g/dL Hematocrit 43.0 % Mean Corpuscular Volume 82.2 fL Mean Corpuscular Hemoglobin 26.2 pg Mean Corpuscular Hemoglobin Concent 31.9 g/dl Platelet Count 224 K/uL Mean Platelet Volume 10.0 fL Neutrophils (%) (Auto) 63.4 % Lymphocytes (%) (Auto) 20.1 % Monocytes (%) (Auto) 13.0 % Eosinophils (%) (Auto) 2.8 % Basophils (%) (Auto) 0.5 % Neutrophils # (Auto) 5.57 K/uL Lymphocytes # (Auto) 1.77 K/uL Monocytes # (Auto) 1.14 K/uL Eosinophils # (Auto) 0.25 K/uL Basophils # (Auto) 0.04 K/uL RDW Standard Deviation 41.7 fL RDW Coefficient of Variation 13.9 % Immature Granulocyte % (Auto) 0.2 % Immature Granulocyte # (Auto) 0.02 K/uL Magnesium Level 2.4 mg/dl Total Creatine Kinase 77 U/L Creatine Kinase MB 1.1 ng/ml Creatine Kinase MB Ratio 1.4 Troponin I < 0.015 ng/ml Bedside Lactic Acid Venous 1.51 mmol/L Influenza Type A Antigen Neg for Influ A Influenza Type B Antigen Neg for Influ B Urine Color DK YELLOW Urine Appearance CLEAR Urine pH 5.0 Urine Specific [place] 1.024 Urine Protein NEG Urine Glucose (UA) NEG Urine Ketones TRACE Urine Occult Blood NEG Urine Nitrite POS Urine Bilirubin NEG Urine Urobilinogen NEG Urine Leukocyte Esterase TRACE Urine WBC (Auto) 1-5 /hpf Urine RBC (Auto) 0-4 /hpf Urine Hyaline Casts (Auto) >30 /lpf Urine Epithelial Cells (Auto) 20-30 /lpf Urine Bacteria (Auto) NEG Urine Pathogenic Casts /lpf Urine Mucus PRESENT Test 05/11/16 16:15 05/12/16 07:57 Sodium Level 141 mmol/L 139 mmol/L Potassium Level 4.3 mmol/L 3.9 mmol/L Chloride Level 105 mmol/L 103 mmol/L Carbon Dioxide Level 26 mmol/L 26 mmol/L Anion Gap 10.0 mmol/L 10.0 mmol/L Blood Urea Nitrogen 31 mg/dl 22 mg/dl Creatinine 1.80 mg/dl 0.98 mg/dl Est Creatinine Clear Calc Drug Dose 32.8 ml/min 59.9 ml/min Estimated GFR () 40.3 84.1 Estimated GFR (Non- 34.8 72.5 BUN/Creatinine Ratio 17.1 22.4 Random Glucose 103 mg/dl 90 mg/dl Calcium Level 8.3 mg/dl 8.3 mg/dl Total Bilirubin 0.6 mg/dl Aspartate Amino Transf (AST/SGOT) 16 U/L Alanine Aminotransferase (ALT/SGPT) 12 U/L Alkaline Phosphatase 61 U/L Total Protein 6.0 gm/dl Albumin 3.1 gm/dl Globulin 2.9 gm/dl Albumin/Globulin Ratio 1.1 White Blood Count 6.40 K/uL Red Blood Count 4.99 M/uL Hemoglobin 13.3 g/dL Hematocrit 41.4 % Mean Corpuscular Volume 83.0 fL Mean Corpuscular Hemoglobin 26.7 pg Mean Corpuscular Hemoglobin Concent 32.1 g/dl Platelet Count 163 K/uL Mean Platelet Volume 9.7 fL Neutrophils (%) (Auto) 61.0 % Lymphocytes (%) (Auto) 23.0 % Monocytes (%) (Auto) 9.1 % Eosinophils (%) (Auto) 6.1 % Basophils (%) (Auto) 0.6 % Neutrophils # (Auto) 3.91 K/uL Lymphocytes # (Auto) 1.47 K/uL Monocytes # (Auto) 0.58 K/uL Eosinophils # (Auto) 0.39 K/uL Basophils # (Auto) 0.04 K/uL RDW Standard Deviation 41.2 fL RDW Coefficient of Variation 13.7 % Immature Granulocyte % (Auto) 0.2 % Immature Granulocyte # (Auto) 0.01 K/uL Magnesium Level 2.0 mg/dl Total Creatine Kinase 114 U/L Creatine Kinase MB 1.5 ng/ml Creatine Kinase MB Ratio 1.3 Troponin I 0.016 ng/ml Assessment and Plan Abnormal EKG - ST-T Changes - CAD S/P SC and Stent- RESOLVED - Repeat EKG without ST-T wave inversions or depression - Repeat cardiac enzymes WNL - trop 0.016 - Echo - pending - Imdur 60 mg daily - Cozaar 100 mg daily - Metoprolol Tartrate 25 mg BID - Eliquis 5 mg BID Syncopal Episodes: - Appear to be vasovagal vs dehydration as they only occur with severe coughing spells - Does report getting lightheaded with rapid position changes - orthostatic complete - 109/62 supine; 95/59 sitting; 116/60 standing Acute Kidney Injury - RESOLVED - Noted Cr of 1.8 on admission and resolved with hydration URI with Sinusitis: - Ceftriaxone 1 g IV daily - Guaifenesin ER 600 mg BID - Advair and Spiriva - Add Loratadine 10 mg daily BPH: - Avodart 0.5 mg daily - Tamsulosin 0.4 mg HS HLD: - Pravastatin 80 mg daily GERD: - Pantoprazole 40 mg daily Depression: - Sertraline 25 mg daily DVT Prophylaxis: - Eliquis Code Status: - FULL RESUSCITATION Disposition: - Possible D/C 1-2 days - will await echo results
[2016-05-12] MEDS ORDERED: CEFU250T15 PO (15:16)
[2016-05-12] MEDS ORDERED: [UNRECOGNIZED DRUG - CODE] PEG (15:16)
--- NOTE | 2016-05-12 15:17 | Discharge Instructions ---
Discharge Instructions Admission Reason for Admission: Abnormal Ekg, Upper Respiratory Infection Discharge Discharge Diagnosis / Problem: bronchitis, uti cough Discharge Goals Goal(s): Decrease discomfort, Diagnostic testing, Therapeutic intervention Activity Recommendations Activity Limitations: resume your previous activity . Current Hospital Diet Patient's current hospital diet: AHA Diet (Heart Healthy) Discharge Diet Recommended Diet: Regular Diet Pending Studies Studies pending at discharge: no Laboratory Results Lipid Panel Test 04/21/16 08:01 Range/Units Triglycerides Level 107 0-150 mg/dl Cholesterol Level 129 0-200 mg/dl HDL Cholesterol 56 mg/dl Cholesterol/HDL Ratio 2.3 LDL Cholesterol, Calculated 52 mg/dl Medical Emergencies . Who to Call and When: Medical Emergencies: If at any time you feel your situation is an emergency, please call 911 immediately. . Non-Emergent Contact Non-Emergency issues call your: Primary Care Provider (one week) Call Non-Emergent contact if: you have a fever . . "Provider Documentation" section prepared by Gaudencio Castanon. VTE Core Measure Inpt VTE Proph given/why not?: SCD's
[2016-05-12 15:46] VITALS: BP 158/78; PULSE 75; TEMP 36.6; O2SAT 97
[2016-05-12 15:47] VITALS: BP 158/78; PULSE 75; TEMP 36.6; O2SAT 97
--- NOTE | 2016-05-12 15:48 | Discharge Summary ---
Discharge Summary Admission Date: May 11, 2016 at 16:29 Discharge Date: May 12, 2016 Discharge Disposition: Home Principal Diagnosis: Bronchitis; Sinusitis; Vasovagal Response (Nupur Sánchez, ANAND) Medication Reconciliation New Medications: Cefuroxime Axetil (Ceftin) 250 Mg Tab 250 MG PO BID, #12 TAB Pseudoephedrine W/ Codeine-GG (Coditussin DAC 30-10-200 mg/5Ml) 1 Liq Liq 5-10 ML PEG Q4H PRN for Cough, #240 ML Continued Medications: Apixaban (Eliquis) 5 Mg Tab 5 MG PO BID Dutasteride (Avodart) 0.5 Mg Cap 0.5 MG PO DAILY, CAP Fluticasone Prop/Salmeterol (Advair Diskus 100-50 Mcg/Dose) 14 Puff/1 Inhaler Aerp 1 PUFF PO DAILY Fluticasone Propionate (Nasal) (Flonase) 50 Mcg/Act Spr 2 SPRAYS NA DAILY PRN for Nasal Congestion Isosorbide Mononitrate (Imdur Ext Rel) 60 Mg Tab 60 MG PO QAM, TAB Losartan Potassium (Cozaar) 100 Mg Tab 100 MG PO BID, TAB Metoprolol Tartrate (Lopressor) (Lopressor) 25 Mg Tab 25 MG PO BID, TAB Nitroglycerin (Nitroglycerin) 0.4 Mg/Hr Dis PRN for Chest Pain Omeprazole (Prilosec) 40 Mg Capcr 40 MG PO DAILY, CAP Pravastatin Sod (Pravastatin Sodium) 40 Mg Tab 80 MG PO QPM Sertraline (Zoloft) 25 Mg Tab 25 MG PO QPM, TAB Tamsulosin Hcl (Flomax) 0.4 Mg Cap 0.4 MG PO DAILY, CAP Thiamine Hcl (Vitamin B-1) 50 Mg Tab 50 MG PO DAILY, TAB Tiotropium Boyds (Spiriva Handihaler) 18 Mcg/ Aerp 1 CAP INH DAILY, INHALER Triamcinolone Acet (Aristocort 0.1%) 90 Appln/30 Gm Cr UD [Flovent] () 220 MCG 2 PUFF PO BID Discontinued Medications: Azithromycin (Zithromax Z-Wander) 250 Mg Tab 1 PKT PO UD for 5 Days, #6 TAB Discharge Exam Review of Systems: Constitutional: No chills, No fever Eyes: No worsening of vision ENT: + nasal symptoms, No sore throat, No trouble swallowing Respiratory: + cough, No dyspnea at rest, No dyspnea on exertion, No shortness of breath Cardiovascular: No chest pain Abdomen: No constipation, No diarrhea, No nausea, No pain, No vomiting Musculoskeletal: No calf pain, No swelling Genitourinary - Male: No dysuria Neurologic: No vertigo Endocrine: No fatigue Hematologic / Lymphatic: No abnormal bleeding/bruising Integumentary: No rash (Nupur Sánchez, ANAND) Hospital Course ADMISSION: The patient is [id number] male presents emergency department with worsening cough with past 3 days his reports that when he coughs he tenses himself upper extremities so severely that he almost passes out over the interval 1-2 minutes. He's also had dizziness, weakness, headache and neck pain. He has had similar symptoms in the past when he was diagnosed with atrial fibrillation. 2 days ago he saw his PCP, who put him on a Z-Wander, without any relief of symptoms at this time. HOSPITAL COURSE: Abnormal EKG - ST-T Changes - CAD S/P RI and Stent- RESOLVED - Repeat EKG without ST-T wave inversions or depression with no further elevations in cardiac enzymes - Echo - pending - Continued home mediations of Imdur, Cozaar, Metoprolol, and Eliquis without any dose adjustments Syncopal Episodes: Vasovagal vs Dehydration - Appear to be vasovagal vs dehydration as they only occur with severe coughing spells - Does report getting lightheaded with rapid position changes - orthostatic complete - 109/62 supine; 95/59 sitting; 116/60 standing Acute Kidney Injury - RESOLVED - Noted Cr of 1.8 on admission and resolved with hydration - likely contribution to "syncopal events" URI with Sinusitis: IMPROVING - Ceftriaxone 1 g IV while admitted - Continue Ceftin 250 mg BID x 6 more days - Coditussin for cough - Continued home Advair and Spiriva BPH: - Avodart 0.5 mg daily - Tamsulosin 0.4 mg HS HLD: - Pravastatin 80 mg daily GERD: - Omeprazole 40 mg daily Depression: - Sertraline 25 mg daily Disposition: - Patient had no further syncopal events. Reports improvement in URI symptoms. Vitals stable and no acute complaints. He is suitable for D/C home with PCP follow-up. Total Time Spent: Greater than 30 minutes This includes examination of the patient, discharge planning, medication reconciliation, and communication with other providers. (Nupur Sánchez, FABIANAC) YECENIA Physician Supervision Note: I interviewed and examined the patient. Discussed with Nupur Sánchez PAC and agree with findings and plan as documented in the note. Any exceptions or clarifications are listed here: None Pt feels dramatically improved, no further symptoms felt, did ambulate in unit without issue vitals are stable, cardiac is irreg, lungs are mild rhonchi at bases at bedside and agrees to discharge, will have home on ceftin, follow up with family doctor in one week Documented By: Gaudencio Castanon (Gaudencio Castanon M.D.) Discharge Instructions Please refer to the electronic Patient Visit Report (Discharge Instructions) for additional information. (Nupur Sánchez, YECENIA-Tammy) Additional Copies To Demetrio Strickland M.D.
--- NOTE | 2016-05-12 16:06 | ECHOCARDIOGRAM REPORT ---
*NOTICE TO RECEIVING CONSTITUTION PARTY AGENCY This information is strictly Confidential and protected under [place] law. [place] law prohibits you from making any further disclosure of this information unless further disclosure is expressly permitted by the written consent of the person to whom it pertains or is authorized by law. A general authorization for the release of medical or other information is not sufficient for this purpose. Hospital accepts no responsibility if the information is made available to any other person, INCLUDING THE PATIENT. Interpretation Summary * Name: BRANDON KUMARI Study Date: 05/12/2016 02:49 PM BP: 159/79 mmHg * Patient Location: C.2T\S\S242\S\2 HR: 65 * : 1935 (M/d/yyyy) Gender: Male Height: 64 in * Age: 80 yrs Ethnicity: CA Weight: 192 lb * Ordering Physician: Nupur Sánchez * Referring Physician: Self, Referred * Performed By: Lorin Ny RCS * * Reason For Study: A-FIB * BSA: 1.9 m2 * Normal biventricular systolic function. * Mild concentric left ventricular hypertrophy. * Left ventricular diastolic dysfunction. * Mild left atrial dilatation. * Trace pulmonic and mitral regurgitation. * Mild aortic root diltation. * -- Conclusions -- * Aortic valve sclerosis mild, without significant aortic valvular stenosis. Procedure Details * A complete two-dimensional transthoracic echocardiogram was performed (2D, M-mode, Doppler and color flow Doppler). Left Ventricle * The left ventricle is normal in size. * There is mild concentric left ventricular hypertrophy. * Ejection Fraction = 55-60%. * Left ventricular systolic function is normal. * A full diastolic examination was done with clinical findings of Class I diastolic dysfunction. * The left ventricular wall motion is normal. Right Ventricle * The right ventricle is normal in size and function. * There is a pacemaker lead in the right ventricle. Atria * The left atrium is mildly dilated. * Right atrial size is normal. * No ASD detected; PFO is not assessed. Mitral Valve * There is moderate mitral annular calcification. * There is trace mitral regurgitation. Tricuspid Valve * The tricuspid valve is not well visualized. * Significant tricuspid regurgitation is absent. Aortic Valve * The aortic valve is trileaflet. * The aortic valve opens well. * Aortic valve sclerosis mild, without significant aortic valvular stenosis. * Aortic stenosis is absent. * No aortic regurgitation is present. Pulmonic Valve * The pulmonic valve is not well visualized. * Trace pulmonic valvular regurgitation. Great Vessels * Mild aortic root dilatation. Pericardium/Pleural * There is no pericardial effusion. Great Vessels * The inferior vena cava is mildly dilated. MMode 2D Measurements and Calculations IVSd 1.2 cm IVSs 1.8 cm LVIDd 4.1 cm LVIDs 3.0 cm LVPWd 1.2 cm LVPWs 1.0 cm IVS/LVPW 1.0 FS 27.2 % EDV(Teich) 74.6 ml ESV(Teich) 34.7 ml EF(Teich) 53.5 % EDV(cubed) 69.4 ml ESV(cubed) 26.7 ml EF(cubed) 61.5 % % IVS thick 44.9 % % LVPW thick -13.75 % LV mass(C)d 176.5 grams LV mass(C)dI 91.8 grams/m\S\2 LV mass(C)s 141.9 grams LV mass(C)sI 73.8 grams/m\S\2 SV(Teich) 39.9 ml SI(Teich) 20.7 ml/m\S\2 SV(cubed) 42.6 ml SI(cubed) 22.2 ml/m\S\2 Ao root diam 4.3 cm Ao root area 14.3 cm\S\2 ACS 1.8 cm LA dimension 4.9 cm LA/Ao 1.1 LVOT diam 2.0 cm LVOT area 3.3 cm\S\2 LVAd ap4 34.4 cm\S\2 LVLd ap4 8.1 cm EDV(MOD-sp4) 121.8 ml EDV(sp4-el) 124.4 ml LVAs ap4 21.1 cm\S\2 LVLs ap4 6.6 cm ESV(MOD-sp4) 60.0 ml ESV(sp4-el) 56.6 ml EF(MOD-sp4) 50.7 % EF(sp4-el) 54.5 % LVAd ap2 32.4 cm\S\2 LVLd ap2 8.4 cm EDV(MOD-sp2) 104.8 ml EDV(sp2-el) 105.8 ml LVAs ap2 21.0 cm\S\2 LVLs ap2 7.8 cm ESV(MOD-sp2) 50.5 ml ESV(sp2-el) 47.9 ml EF(MOD-sp2) 51.8 % EF(sp2-el) 54.8 % LVLd %diff 4.0 % EDV(MOD-bp) 112.1 ml LVLs %diff 15.1 % ESV(MOD-bp) 59.9 ml EF(MOD-bp) 46.5 % SV(MOD-sp4) 61.7 ml SI(MOD-sp4) 32.1 ml/m\S\2 SV(MOD-sp2) 54.3 ml SI(MOD-sp2) 28.2 ml/m\S\2 SV(MOD-bp) 52.1 ml SI(MOD-bp) 27.1 ml/m\S\2 SV(sp4-el) 67.8 ml SI(sp4-el) 35.3 ml/m\S\2 SV(sp2-el) 58.0 ml SI(sp2-el) 30.2 ml/m\S\2 Doppler Measurements and Calculations MV E max dee 55.0 cm/sec MV A max dee 75.5 cm/sec MV E/A 0.73 MV P1/2t max dee 62.7 cm/sec MV P1/2t 68.6 msec MVA(P1/2t) 3.2 cm\S\2 MV dec slope 267.4 cm/sec\S\2 MV dec time 0.18 sec Ao V2 max 95.9 cm/sec Ao max PG 3.7 mmHg Ao max PG (full) 1.6 mmHg LUISA(V,A) 2.5 cm\S\2 LUISA(V,D) 2.5 cm\S\2 LV V1 max PG 2.1 mmHg LV V1 max 72.1 cm/sec MR max dee 295.9 cm/sec MR max PG 35.0 mmHg PA V2 max 89.5 cm/sec PA max PG 3.2 mmHg PI max dee 203.6 cm/sec PI max PG 16.6 mmHg PI dec slope 168.7 cm/sec\S\2 PI P1/2t 353.6 msec
[2016-05-12] MEDS ORDERED: CEFTRIAXONE SOD INJ 1 GM in DEXTROSE 5% ADD-VANTAGE 50ML 50 ML IV SCH (17:00)
[2016-05-13] MEDS ORDERED: LORATADINE 10 MG TAB PO SCH (09:00)
[2016-05-26] MEDS ORDERED: TRMO115 TOP (13:27)
[2016-05-26] MEDS ORDERED: ASPI81TA28 PO (13:27)
[2016-05-26] MEDS ORDERED: THIA1TAB PO (13:27)
[2016-05-26] MEDS ORDERED: NTRGSL/4 UT (13:27)
== END 2016-05-12 16:00 | disposition home or self-care (01) | DRG 153 ==
LOC: ENRESERVDT → ENRESERVTM → C.EDB 13:11 → C.2T 16:29
PROVIDERS: ADMIT Hospitalist; ATTEND Hospitalist
DX: J01.90 Acute sinusitis, unspecified (principal); N17.9 Acute kidney failure, unspecified; N39.0 Urinary tract infection, site not specified; J40 Bronchitis, not specified as acute or chronic; I48.2 Chronic atrial fibrillation; I10 Essential (primary) hypertension; F32.9 Major depressive disorder, single episode, unspecified; K21.9 Gastro-esophageal reflux disease without esophagitis; E86.0 Dehydration; N40.0 Benign prostatic hyperplasia without lower urinary tract symptoms; E86.1 Hypovolemia; I25.10 Atherosclerotic heart disease of native coronary artery without angina pectoris; I25.2 Old myocardial infarction; E78.00 Pure hypercholesterolemia, unspecified; E78.5 Hyperlipidemia, unspecified; Z87.891 Personal history of nicotine dependence; R94.31 Abnormal electrocardiogram [ECG] [EKG]; R55 Syncope and collapse; Z95.5 Presence of coronary angioplasty implant and graft; Z79.01 Long term (current) use of anticoagulants; Z79.899 Other long term (current) drug therapy; Z79.51 Long term (current) use of inhaled steroids

== ENCOUNTER → 2016-05-22 | Outpatient (CLI) | payer OTHER ==
[~2016-05-22] MED LIST changes: +ADVIN10050 PO; +APIX1TAB3 PO; +ASPI81TA28 PO; +CEFU250T15 PO; +DUTA0.5C PO; +FLOVENT PO; +METO25TA56 PO; -METO50TA17 PO; +NTRGSL/4 UT; +PRVC40 PO; +THIA1TAB PO; +TRMO115 TOP; -WARF5TAB7 PO; +[UNRECOGNIZED DRUG - CODE] PEG; -[UNRECOGNIZED DRUG - CODE] PO
[2016-05-22 17:50] LABS: BLOOD UREA NITROGEN 13 mg/dl (7-18); BUN/CREATININE RATIO 14.1 (10-20); CALCIUM 9.2 mg/dl (8.5-10.1); CARBON DIOXIDE 27 mmol/L (21-32); CHLORIDE 100 mmol/L (98-107); CREATININE 0.95 mg/dl (0.60-1.40); GLUCOSE 94 mg/dl (70-99); POTASSIUM 4.1 mmol/L (3.5-5.1); SODIUM 138 mmol/L (136-145)
[2016-05-22 17:59] LABS: URINE APPEARANCE CLEAR (CLEAR); URINE BILIRUBIN NEG (NEG); URINE COLOR YELLOW; URINE EPITHELIAL CELL AUTO 0-5 /lpf (0-5); URINE NITRITE NEG (NEG); URINE SPECIFIC GRAVITY 1.007 (1.000-1.030); UROBILINOGEN NEG (NEG)
[2016-05-22 18:02] LABS: MANUAL MICROSCOPIC REQUIRED? NO; REVIEW REQ? NO
== END | disposition home or self-care (01) ==
LOC: C.LABMFLN 14:45
PROVIDERS: ATTEND Family Medicine
DX: E86.0 Dehydration (principal); R82.90 Unspecified abnormal findings in urine

== ENCOUNTER 2016-05-30 12:41 | Emergency (ER) | payer OTHER ==
[~2016-05-30] VITALS: Ht 160 cm; Wt 87.3 kg
[~2016-05-30 12:41] MED LIST changes: -CEFU250T15 PO; -FLOVENT PO; -NITR0.4D6; -THIA50TA3 PO; -TRMCR130WC; -[UNRECOGNIZED DRUG - CODE] PEG
[2016-05-30 12:53] VITALS: TEMP 37; Ht 160 cm; Wt 87.3 kg
--- NOTE | 2016-05-30 14:04 | DIAGNOSTIC IMAGING REPORT ---
SINGLE VIEW CHEST CLINICAL HISTORY: Cough and syncope. FINDINGS: An AP, portable, upright chest radiograph is compared to study dated 05/11/2016 and correlated with chest CT dated 04/19/2015. The examination is degraded by portable technique and patient rotation. A 2-lead cardiac pacemaker is unchanged in position. The heart is enlarged and there is atherosclerotic calcification of the thoracic aorta. The pulmonary vasculature is noncongested. Mild emphysema and chronic interstitial thickening are similar to previous. There is also postoperative change from right-sided pulmonary resection with chronic elevation of the right hemidiaphragm. Patchy airspace opacities are again seen in the right lower lung. The left lung appears clear. No large pleural effusion or pneumothorax is seen. The skeletal structures are osteopenic. Degenerative change is noted throughout the thoracic spine. IMPRESSION: 1. Cardiomegaly and cardiac pacemaker. There is no radiographic evidence of congestive failure. 2. Patchy airspace opacities are again seen at the right lung base. This likely represents an infectious or inflammatory pneumonitis, possibly chronic. Clinical correlation will be required. 3. Mild emphysema and postoperative change on the right. Electronically signed by: Demetrio Barnes M.D. 05/30/2016 2:03 PM Dictated Date/Time: 05/30/2016 2:01 PM
[2016-05-30 14:07] LABS: BASO % 0.6 %; BASO ABS # 0.04 K/uL (0-0.2); COMPLETE YES; EOS % 0.3 %; IG% 0.2 %; LYMPH % 11.9 %; LYMPH ABS # 0.78 K/uL (1.2-3.4); MEAN CELL VOLUME 81.2 fL (80-100); MEAN CORPUSCULAR HEMOGLOBIN 26.5 pg (25-34); MEAN CORPUSCULAR HGB CONC 32.7 g/dl (32-36); MEAN PLATELET VOLUME 10.2 fL (7.4-10.4); MONO % 12.8 %; NEUT % 74.2 %; PLATELET COUNT 200 K/uL (130-400); RED BLOOD COUNT 5.05 M/uL (4.7-6.1); WHITE BLOOD COUNT 6.54 K/uL (4.8-10.8)
[2016-05-30 14:21] LABS: BUN/CREATININE RATIO 15.7 (10-20); CALCIUM 8.7 mg/dl (8.5-10.1); CKMB/CK RATIO 0.7 (0-3.0); CREATININE 1.2 mg/dl (0.60-1.40); POTASSIUM 3.9 mmol/L (3.5-5.1)
[2016-05-30 14:34] LABS: ALB/GLOB RATIO 1.1 (0.9-2); THYROID STIMULATING HORMONE 1.48 uIu/ml (0.300-4.500)
--- NOTE | 2016-05-30 15:54 | EMERGENCY ROOM VISIT NOTE ---
History Report prepared by Arun: Estelle Lanier Under the Supervision of: Dr. Alon Bonds M.D. 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 The patient came to the ED via ambulance. The patient was at his PCP's office when the syncope occurred so they sent him into the ED. The patient's states that the patient was discharge from the hospital on May 12. He felt well for a couple days, but then the cough returned along with intermittent episodes of syncope. The patient has not noticed any correlation between the syncopal episodes and standing up. The patient's states that the patient will cough repeatedly then shake and then "ask what happened," so she assumed that he experienced syncope. However, the patient's daughter states that he coughs to the point of being unable to breath. The patient is also experiencing hypotension, but denies fevers, chills, abdominal pain, and lower extremity edema. The patient states that he was diagnosed with atrial fibrillation in 2014. He states that he is on Eliquis. Source of History: patient, family (daughter), spouse/significant other ( ) Onset: MARKETING COPYWRITER Quality: other (syncope) Timing: other (sudden) Associated Symptoms: No abdominal pain, No chills, No fevers Note: hypotension, no lower extremity edema Review of Systems All systems have been listed, reviewed, and are negative other than those previously mentioned. Past Medical & Surgical Medical Problems: (1) Abnormal EKG (2) Atrial fibrillation (3) Hypertension (4) Pneumonia (5) Syncope (6) Upper respiratory infection Family History No pertinent family history Social History Smoking Status: Former Smoker Drug Use: none Marital Status: Housing Status: lives with significant other Occupation Status: retired Current/Historical Medications Scheduled Apixaban (Eliquis), 5 MG PO BID Aspirin (Aspirin Ec), 81 MG PO QAM Dutasteride (Avodart), 0.5 MG PO QAM Fluticasone Prop/Salmeterol (Advair Diskus 100-50 Mcg/Dose), 1 PUFF PO QAM Isosorbide Mononitrate (Imdur Ext Rel), 60 MG PO QAM Losartan Potassium (Cozaar), 0.5 TAB PO BID Metoprolol Tartrate (Lopressor) (Lopressor), 25 MG PO BID Omeprazole (Prilosec), 40 MG PO BID Pravastatin Sod (Pravastatin Sodium), 80 MG PO HS Sertraline (Zoloft), 25 MG PO QPM Tamsulosin Hcl (Flomax), 0.4 MG PO HS Thiamine Hcl (B-1), 0.5 TAB PO BID Tiotropium Bear (Spiriva Handihaler), 1 CAP INH DAILY Scheduled PRN Fluticasone Propionate (Nasal) (Flonase), 2 SPRAYS NA DAILY PRN for Nasal Congestion Nitroglycerin (Nitrostat), 0.4 MG UT PRN PRN for Chest Pain Triamcinolone Acet (Triamcinolone Acetonide), 1 APPLN TOP BID PRN for PRN Allergies Coded Allergies: Atorvastatin (Verified Adverse Reaction, Intermediate, N/V, 05/30/16) Benazepril (Verified Adverse Reaction, Intermediate, COUGH, 05/30/16) Physical Exam Vital Signs Date Time Temp Pulse Resp B/P Pulse Ox O2 Delivery O2 Flow Rate FiO2 05/30/16 18:49 71 18 125/69 96 05/30/16 16:51 68 05/30/16 16:47 66 138/77 71 109/53 74 132/66 05/30/16 14:43 104 22 109/81 94 Room Air 119 89/69 128 82/55 05/30/16 14:40 105 23 109/77 94 Room Air 05/30/16 12:53 37.0 125 21 102/73 94 Room Air 05/30/16 12:48 109 Physical Exam GENERAL: Patient awake, alert, oriented x 3. Patient follows commands. Patient does not appear toxic. Patient is adequately hydrated and well- nourished. SKIN: No erythema, pallor, cyanosis or rash HEENT: Normal head, pupils equal, reactive to light and accommodation. Bilateral hearing aids. Oral cavity and posterior pharynx appear normal. Neck : Without adenopathy, no neck vein distention. LUNGS: Clear to auscultation. No wheezes, no rales, no rhonchi. HEART: Irregularly irregular rhythm. Rapid rate without murmur. ABDOMEN: No masses, no rebound, no hepatomegaly or splenomegaly. EXTREMITIES: No signs of trauma. No pedal or pretibial edema. No calf or thigh tenderness. NEUROLOGIC: Cranial nerves II-XII within normal limits. No gross motor sensory function deficits. Medical Decision & Procedures ER Provider Diagnostic Interpretation: X ray results are stated below per my interpretation and the radiologist's interpretation. SINGLE VIEW CHEST IMPRESSION: 1. Cardiomegaly and cardiac pacemaker. There is no radiographic evidence of congestive failure. 2. Patchy airspace opacities are again seen at the right lung base. This likely represents an infectious or inflammatory pneumonitis, possibly chronic. Clinical correlation will be required. 3. Mild emphysema and postoperative change on the right. Electronically signed by: Demetrio Barnes M.D. 05/30/2016 2:03 PM Dictated Date/Time: 05/30/2016 2:01 PM Laboratory Results 05/30/16 13:33 Red Blood Count 5.05, Mean Corpuscular Volume 81.2, Mean Corpuscular Hemoglobin 26.5, Mean Corpuscular Hemoglobin Concent 32.7, Mean Platelet Volume 10.2, Neutrophils (%) (Auto) 74.2, Lymphocytes (%) (Auto) 11.9, Monocytes (%) (Auto) 12.8, Eosinophils (%) (Auto) 0.3, Basophils (%) (Auto) 0.6, Neutrophils # (Auto ) 4.85, Lymphocytes # (Auto) 0.78, Monocytes # (Auto) 0.84, Eosinophils # (Auto ) 0.02, Basophils # (Auto) 0.04 05/30/16 13:33 Test 05/30/16 13:33 White Blood Count 6.54 K/uL (4.8-10.8) Red Blood Count 5.05 M/uL (4.7-6.1) Hemoglobin 13.4 g/dL (14.0-18.0) Hematocrit 41.0 % (42-52) Mean Corpuscular Volume 81.2 fL (80-100) Mean Corpuscular Hemoglobin 26.5 pg (25-34) Mean Corpuscular Hemoglobin Concent 32.7 g/dl (32-36) Platelet Count 200 K/uL (130-400) Mean Platelet Volume 10.2 fL (7.4-10.4) Neutrophils (%) (Auto) 74.2 % Lymphocytes (%) (Auto) 11.9 % Monocytes (%) (Auto) 12.8 % Eosinophils (%) (Auto) 0.3 % Basophils (%) (Auto) 0.6 % Neutrophils # (Auto) 4.85 K/uL (1.4-6.5) Lymphocytes # (Auto) 0.78 K/uL (1.2-3.4) Monocytes # (Auto) 0.84 K/uL (0.11-0.59) Eosinophils # (Auto) 0.02 K/uL (0-0.5) Basophils # (Auto) 0.04 K/uL (0-0.2) RDW Standard Deviation 41.6 fL (36.4-46.3) RDW Coefficient of Variation 14.1 % (11.5-14.5) Immature Granulocyte % (Auto) 0.2 % Immature Granulocyte # (Auto) 0.01 K/uL (0.00-0.02) Anion Gap 9.0 mmol/L (3-11) Est Creatinine Clear Calc Drug Dose 48.0 ml/min Estimated GFR () 65.8 Estimated GFR (Non- 56.8 BUN/Creatinine Ratio 15.7 (10-20) Calcium Level 8.7 mg/dl (8.5-10.1) Total Bilirubin 0.6 mg/dl (0.2-1) Aspartate Amino Transf (AST/SGOT) 19 U/L (15-37) Alanine Aminotransferase (ALT/SGPT) 19 U/L (12-78) Alkaline Phosphatase 76 U/L (45-117) Total Creatine Kinase 169 U/L (39-308) Creatine Kinase MB 1.2 ng/ml (0.5-3.6) Creatine Kinase MB Ratio 0.7 (0-3.0) Troponin I < 0.015 ng/ml (0-0.045) Total Protein 6.7 gm/dl (6.4-8.2) Albumin 3.5 gm/dl (3.4-5.0) Globulin 3.2 gm/dl (2.5-4.0) Albumin/Globulin Ratio 1.1 (0.9-2) Thyroid Stimulating Hormone (TSH) 1.480 uIu/ml (0.300-4.500) Laboratory results as stated above per my review. ECG Indication: syncope Rate (beats per minute): 109 Rhythm: atrial fibrillation (with RVR) Findings: nonspecific-ST abn ED Course 1450: Past medical records reviewed. The patient was evaluated in room B3. A complete history and physical examination was performed. 163: I reassessed the patient. He is resting comfortably. 1654: I reevaluated the patient. His blood pressure has come up. We are going to have him ambulate and see how he does. 1824: Upon reevaluation, the patient appeared to have improvement of his symptoms. I discussed today's findings with the patient and his family. They verbalized agreement of the treatment plan. The patient was discharged home. Medical Decision Nurses notes reviewed. Medical history sheet reviewed. Differential diagnosis includes but is not limited to: cough, syncope, orthostatic hypotension, dehydration, atrial fibrillation with rapid ventricular response, metabolic disorder. Multiple labs, EKG and imaging were obtained. Please see above. The patient is in atrial fibrillation which is old. On arrival the patient was hypotensive and orthostatic. The patient had apparently passed out earlier today. He has passed out multiple times related to his cough. He was recently in the hospital for similar problems. The patient was given a liter of fluid and his blood pressure responded appropriately. He was no longer orthostatic when checked again. The patient was monitored for several hours while in the ED and was able to walk through the ED without symptoms prior to departure. I encouraged the patient to increase fluid intake. Impression Primary Impression: Orthostatic hypotension Additional Impressions: Cough syncope Atrial fibrillation Dehydration Scribe Attestation The scribe's documentation has been prepared under my direction and personally reviewed by me in its entirety. I confirm that the note above accurately reflects all work, treatment, procedures, and medical decision making performed by me. Departure Information Dispostion Home / Self-Care Referrals Demetrio Strickland M.D. (PCP) Jay Dudley M.D., Alexander W., MD Forms HOME CARE DOCUMENTATION FORM, IMPORTANT VISIT INFORMATION, WORK / SCHOOL INSTRUCTIONS Patient Instructions My [facility] [employer] Additional Instructions Drink 3-4 quarts of fluid per day. Continue all of your current medications as prescribed. 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 Return here sooner if you are feeling lightheaded or pass out. Problem Qualifiers
[2016-05-30 18:49] VITALS: BP 125/69; PULSE 71; O2SAT 96
== END 2016-05-30 18:49 | disposition home or self-care (01) ==
LOC: EDBD 12:41 → C.EDB 12:42
DX: I95.1 Orthostatic hypotension (principal); R05 Cough; I48.91 Unspecified atrial fibrillation; E86.0 Dehydration; I10 Essential (primary) hypertension; Z87.891 Personal history of nicotine dependence

== ENCOUNTER → 2016-06-05 | Day surgery (SDC) | payer OTHER ==
[2016-05-26 13:33] VITALS: BMI 33.0
[~2016-06-05] VITALS: Ht 162.6 cm; Wt 88.2 kg
[~2016-06-05] MED LIST changes: +SODIUM CHLORIDE 0.9% 500ML 500 ML IV ONE
[2016-06-05 13:27] VITALS: Ht 162.6 cm; Wt 88.2 kg
--- NOTE | 2016-06-05 14:45 | Endo History and Physical ---
History & Physical Date of Service: Jun 05, 2016. Chief Complaint: DYSPHAGIA Referring Physician: DR. MARY CANCHOLA History of Present Illness 80 yo CM who presents for EGD secondary to dysphagia. Past Medical History Angioplasty/Stent, Pacemaker, Asthma, Male Genitourinary Prob., Anxiety, Reflux , Cancer, High Cholesterol, CABG, Heart Disease, Hypertension, COPD, CVA/TIA, Depression, [place] Past Surgical History Hx Cardiac Surgery: Yes (HEART CATH, STENT X2) Hx Internal Defibrillator: No Hx Pacemaker: Yes ([employer] 11-30-14) Hx Abdominal Surgery: No Hx of Implantable Prosthesis: No Hx Post-Op Nausea and Vomiting: No Hx Cancer Surgery: Yes (RT LOWER LOBECTOMY) Hx Thoracic Surgery: No Hx Orthopedic: No Hx Urinary Tract Surgery: Yes (VASECTOMY) Family History Colon CA Social History Smoking Status: Former Smoker Hx Substance Use: No Hx Alcohol Use: Yes ("A COUPLE OF BEERS PER DAY") Allergies Coded Allergies: Atorvastatin (Verified Adverse Reaction, Intermediate, N/V, 05/30/16) Benazepril (Verified Adverse Reaction, Intermediate, COUGH, 05/30/16) Current Medications Reported Home Medications Medications Dose Route/Sig Max Daily Dose Days Date Category Triamcinolone Acetonide (Triamcinolone Acet) 45 Appln/15 Gm Oint 1 Appln TOP BID PRN 05/26/16 Reported Nitrostat (Nitroglycerin) 0.4 Mg Tab 0.4 Mg UT PRN PRN 05/26/16 Reported Aspirin Ec (Aspirin) 81 Mg Tab 81 Mg PO QAM 05/26/16 Reported B-1 (Thiamine Hcl) 250 Mg Tab 0.5 Tab PO BID 05/26/16 Reported Pravastatin Sodium (Pravastatin Sod) 40 Mg Tab 80 Mg PO HS 05/11/16 Reported Lopressor (Metoprolol Tartrate) 25 Mg Tab 25 Mg PO BID 05/11/16 Reported Eliquis (Apixaban) 5 Mg Tab 5 Mg PO BID 05/11/16 Reported Avodart (Dutasteride) 0.5 Mg Cap 0.5 Mg PO QAM 05/11/16 Reported Advair Diskus 100-50 Mcg/Dose (Fluticasone Prop/Salmeterol) 14 Puff/1 Inhaler Aerp 1 Puff PO QAM 05/11/16 Reported Spiriva Handihaler (Tiotropium [place]) 18 Mcg/ Aerp 1 Cap INH DAILY 06/07/14 Reported Flomax (Tamsulosin Hcl) 0.4 Mg Cap 0.4 Mg PO HS 06/07/14 Reported Cozaar (Losartan Potassium) 100 Mg Tab 0.5 Tab PO BID 05/18/13 Reported Imdur Ext Rel (Isosorbide Mononitrate) 60 Mg Tab 60 Mg PO QAM 05/18/13 Reported Flonase (Fluticasone Propionate (Nasal)) 50 Mcg/Act Spr 2 Sprays NA DAILY PRN 05/18/13 Reported Prilosec (Omeprazole) 40 Mg Capcr 40 Mg PO BID 05/18/13 Reported Zoloft (Sertraline HCl) 25 Mg Tab 25 Mg PO QPM 05/16/13 Reported Vital Signs Weight (Kilograms): 88.18 Height (Feet): 5 Height (Inches): 4 Date Time Temp Pulse Resp B/P Pulse Ox O2 Delivery O2 Flow Rate FiO2 06/05/16 13:36 36.5 82 20 161/97 96 Room Air Physical Exam General Appearance: WD/WN, no apparent distress Respiratory/Chest: Auscultation: breath sounds normal Cardiovascular: Heart Auscultation: RRR Abdomen: Bowel Sounds: normal Inspection & Palpation: soft, non-distended, no tenderness, guarding & rebound Assessment and Plan Assessment: 80 yo CM who presents for EGD secondary to dysphagia. Plan: Proceed with EGD.
--- NOTE | 2016-06-05 15:00 | Discharge Instructions ---
Endoscopy Patient Instructions Date / Procedure(s) Performed Jun 05, 2016. EGD Allergy Information Coded Allergies: Atorvastatin (Verified Adverse Reaction, Intermediate, N/V, 05/30/16) Benazepril (Verified Adverse Reaction, Intermediate, COUGH, 05/30/16) Discharge Date / Findings Jun 05, 2016. Schatzki's Ring s/p dilation Hiatal hernia Duodenal diverticulum Medication Instructions Stopped Medication(s): INSTRUCTED TO STOP ELIQUIS TWO DAYS PRIOR TO PROCEDURE. OK to resume all medications today as prescribed Reported Home Medications Medications Dose Route/Sig Max Daily Dose Days Date Category Triamcinolone Acetonide (Triamcinolone Acet) 45 Appln/15 Gm Oint 1 Appln TOP BID PRN 05/26/16 Reported Nitrostat (Nitroglycerin) 0.4 Mg Tab 0.4 Mg UT PRN PRN 05/26/16 Reported Aspirin Ec (Aspirin) 81 Mg Tab 81 Mg PO QAM 05/26/16 Reported B-1 (Thiamine Hcl) 250 Mg Tab 0.5 Tab PO BID 05/26/16 Reported Pravastatin Sodium (Pravastatin Sod) 40 Mg Tab 80 Mg PO HS 05/11/16 Reported Lopressor (Metoprolol Tartrate) 25 Mg Tab 25 Mg PO BID 05/11/16 Reported Eliquis (Apixaban) 5 Mg Tab 5 Mg PO BID 05/11/16 Reported Avodart (Dutasteride) 0.5 Mg Cap 0.5 Mg PO QAM 05/11/16 Reported Advair Diskus 100-50 Mcg/Dose (Fluticasone Prop/Salmeterol) 14 Puff/1 Inhaler Aerp 1 Puff PO QAM 05/11/16 Reported Spiriva Handihaler (Tiotropium [place]) 18 Mcg/ Aerp 1 Cap INH DAILY 06/07/14 Reported Flomax (Tamsulosin Hcl) 0.4 Mg Cap 0.4 Mg PO HS 06/07/14 Reported Cozaar (Losartan Potassium) 100 Mg Tab 0.5 Tab PO BID 05/18/13 Reported Imdur Ext Rel (Isosorbide Mononitrate) 60 Mg Tab 60 Mg PO QAM 05/18/13 Reported Flonase (Fluticasone Propionate (Nasal)) 50 Mcg/Act Spr 2 Sprays NA DAILY PRN 05/18/13 Reported Prilosec (Omeprazole) 40 Mg Capcr 40 Mg PO BID 05/18/13 Reported Zoloft (Sertraline HCl) 25 Mg Tab 25 Mg PO QPM 05/16/13 Reported Provider Instructions Activity Restrictions - No exercising or heavy lifting for 24 hours. - Do not drink alcohol the day of the procedure. - Do not drive a car or operate machinery until the day after the procedure. - Do not make any important decisions or sign important papers in 24 hours after the procedure. Following Day: - Return to full activity which may include returning to work/school. Diet Start your diet with liquids and light foods (jello, soup, juice, toast). Then eat your usual diet if not nauseated. Treatment For Common After Affects For mild abdominal pain, bloating, or excessive gas: - Rest - Eat lightly - Lie on right side Follow-Up Information Follow-up with DR. MARY CANCHOLA as scheduled Anesthesia Information What You Should Know You have had a procedure that required some medicine to reduce anxiety and discomfort. This treatment is called moderate sedation. After receiving the treatment, you may be sleepy, but you will be able to breathe on your own. The effects of the treatment may last for several hours. Follow these instructions along with Activity/Diet recommendations noted above: * Do NOT do anything where dizziness or clumsiness would be dangerous. * Rest quietly at home today, then you can be up and about tomorrow. * Have a responsible person stay with you the rest of today. * You may have had an I.V. today. If so, you may take the dressing off later today. Recommendations Call your doctor if: * Trouble breathing * Continuous vomiting for more than 24 hours * Temperature above 101 degrees * Severe abdominal pain or bloating * Pain not relieved by pain medicine ordered * There is increased drainage or redness from any incision * A large amount of rectal bleeding greater than 2-3 tablespoons. (If you had a polyp/s removed or have hemorrhoids, a small amount of blood - from the rectum is to be expected.) * You have any unanswered questions or concerns. IN THE EVENT OF A SERIOUS EMERGENCY, GO TO THE NEAREST EMERGENCY ROOM Your discharge instructions were prepared by provider Tucker Flores. Patient Instructions Signature Page Jono Mayfield Patient (or Guardian) Signature/Date: I have read and understand the instructions given to me by my caregivers. Caregiver/RN/Doctor Signature/Date: The above-named patient and/or guardian has received patient instructions on this date. + Original Patient Signature Page (only) stays with chart. Please make copy for patient.
--- NOTE | 2016-06-05 15:05 | GI REPORT ---
Procedure Date: 06/05/2016 1:53 PM Procedure: Upper GI endoscopy Indications: Dysphagia Medicines: Monitored Anesthesia Care Complications: No immediate complications. Estimated Blood Loss: Estimated blood loss: none. Procedure: Pre-Anesthesia Assessment: - Prior to the procedure, a History and Physical was performed, and patient medications and allergies were reviewed. The patient's tolerance of previous anesthesia was also reviewed. The risks and benefits of the procedure and the sedation options and risks were discussed with the patient. All questions were answered, and informed consent was obtained. Prior Anticoagulants: The patient last took Eliquis (apixaban) 1 day prior to the procedure and last took aspirin on the day of the procedure. ASA Grade Assessment: III - A patient with severe systemic disease. After reviewing the risks and benefits, the patient was deemed in satisfactory condition to undergo the procedure. After obtaining informed consent, the endoscope was passed under direct vision. Throughout the procedure, the patient's blood pressure, pulse, and oxygen saturations were monitored continuously. The On-site loaner was introduced through the mouth, and advanced to the second part of duodenum. The upper GI endoscopy was accomplished without difficulty. The patient tolerated the procedure well. Findings: A mild Schatzki ring (acquired) was found at the gastroesophageal junction. A TTS dilator was passed through the scope. Dilation with a 15-16.5-18 mm balloon (to a maximum balloon size of 18 mm) dilator was performed. The dilation site was examined and showed mild improvement in luminal narrowing. A medium-sized hiatus hernia was present. A diverticulum was found in the second part of the duodenum. Impression: - Mild Schatzki ring. Dilated. - Medium-sized hiatus hernia. - Duodenal diverticulum. - No specimens collected. Recommendation: - Resume previous diet. - Continue present medications. - Repeat the upper endoscopy PRN for retreatment. - Return to primary care physician as previously scheduled. Tucker Flores, DO 06/05/2016 3:05:03 PM This report has been signed electronically. Note Initiated On: 06/05/2016 1:53 PM
[2016-06-05 15:36] VITALS: BP 150/79; PULSE 58; O2SAT 95
--- NOTE | 2016-06-05 15:54 | Anesthesiology Progress Note ---
Anesthesia Post Op Note Date & Time Jun 05, 2016 at 15:54 Vital Signs Pain Intensity: 0 Vital Signs Past 12 Hours Date Time Temp Pulse Resp B/P Pulse Ox O2 Delivery O2 Flow Rate FiO2 06/05/16 15:36 58 20 150/79 95 Room Air 06/05/16 15:21 59 20 152/77 95 Room Air 06/05/16 15:06 72 20 173/84 95 Room Air 06/05/16 13:36 36.5 82 20 161/97 96 Room Air Notes Mental Status: alert / awake / arousable, participated in evaluation Pt Amnestic to Procedure: Yes Nausea / Vomiting: adequately controlled Pain: adequately controlled Airway Patency, RR, SpO2: stable & adequate BP & HR: stable & adequate Hydration State: stable & adequate Anesthetic Complications: no major complications apparent
== END | disposition home or self-care (01) ==
LOC: C.GI 13:09
PROVIDERS: ATTEND Internal Medicine
DX: K22.2 Esophageal obstruction (principal); K44.9 Diaphragmatic hernia without obstruction or gangrene; K57.10 Diverticulosis of small intestine without perforation or abscess without bleeding; K21.9 Gastro-esophageal reflux disease without esophagitis; J45.909 Unspecified asthma, uncomplicated; F41.9 Anxiety disorder, unspecified; E78.5 Hyperlipidemia, unspecified; J44.9 Chronic obstructive pulmonary disease, unspecified; F32.9 Major depressive disorder, single episode, unspecified; I25.2 Old myocardial infarction; Z95.5 Presence of coronary angioplasty implant and graft; Z86.73 Personal history of transient ischemic attack (TIA), and cerebral infarction without residual deficits; Z98.890 Other specified postprocedural states; Z87.891 Personal history of nicotine dependence; Z88.8 Allergy status to other drugs, medicaments and biological substances; Z79.82 Long term (current) use of aspirin; Z79.01 Long term (current) use of anticoagulants

== ENCOUNTER → 2016-11-05 | Outpatient (CLI) | payer OTHER ==
[~2016-11-05] MED LIST changes: -SODIUM CHLORIDE 0.9% 500ML 500 ML IV ONE
[2016-11-05 18:24] LABS: CHOLESTEROL/HDL RATIO 2.4
== END | disposition home or self-care (01) ==
LOC: C.LABMFLN 13:25
PROVIDERS: ATTEND Family Medicine
DX: I25.10 Atherosclerotic heart disease of native coronary artery without angina pectoris (principal)

== ENCOUNTER → 2017-04-20 | Outpatient (CLI) | payer OTHER ==
[2017-04-20 12:31] LABS: BASO % 1.2 %; BASO ABS # 0.05 K/uL (0-0.2); COMPLETE YES; EOS % 3.8 %; HEMATOCRIT 42.4 % (42-52); IG% 0.2 %; LYMPH % 31.2 %; LYMPH ABS # 1.33 K/uL (1.2-3.4); MEAN CELL VOLUME 84.8 fL (80-100); MEAN CORPUSCULAR HEMOGLOBIN 27.2 pg (25-34); MEAN CORPUSCULAR HGB CONC 32.1 g/dl (32-36); MEAN PLATELET VOLUME 9.5 fL (7.4-10.4); MONO % 10.8 %; NEUT % 52.8 %; PLATELET COUNT 176 K/uL (130-400); WHITE BLOOD COUNT 4.26 K/uL (4.8-10.8)
[2017-04-20 14:11] LABS: ALT/SGPT 20 U/L (12-78); AST/SGOT 16 U/L (15-37); BLOOD UREA NITROGEN 17 mg/dl (7-18); BUN/CREATININE RATIO 18.1 (10-20); CALCIUM 8.8 mg/dl (8.5-10.1); CARBON DIOXIDE 30 mmol/L (21-32); CHLORIDE 101 mmol/L (98-107); CHOLESTEROL 131 mg/dl (0-200); CHOLESTEROL/HDL RATIO 2.4; CREATININE 0.94 mg/dl (0.60-1.40); GLUCOSE 99 mg/dl (70-99); HDL CHOLESTEROL 54 mg/dl; LDL CHOLESTEROL CALCULATED 56 mg/dl; POTASSIUM 3.7 mmol/L (3.5-5.1); SODIUM 137 mmol/L (136-145); TRIGLYCERIDES 103 mg/dl (0-150); VERY LOW DENSITY LIPOPROT CALC 21 mg/dl
== END | disposition home or self-care (01) ==
LOC: C.LABMFLN 08:47
PROVIDERS: ATTEND Family Medicine
DX: I48.0 Paroxysmal atrial fibrillation (principal); I25.10 Atherosclerotic heart disease of native coronary artery without angina pectoris